=== PATIENT | male | born 1980 | race African-American/Black ===

== ENCOUNTER 2020-07-19 09:33 | Emergency (ER) | payer BC, OTHER ==
--- NOTE | 2020-07-19 10:21 | RADIOLOGY REPORT (SQ) ---
EXAM DESCRIPTION: CHEST SINGLE VIEW IMAGES COMPLETED DATE/TIME: 07/19/2020 10:14 am REASON FOR STUDY: bed 10 chest pain COMPARISON: None. EXAM PARAMETERS: NUMBER OF VIEWS: One view. TECHNIQUE: Single frontal radiographic view of the chest acquired. RADIATION DOSE: NA LIMITATIONS: None. FINDINGS: LUNGS AND PLEURA: No opacities, masses or pneumothorax. No pleural effusion. MEDIASTINUM AND HILAR STRUCTURES: No masses. Contour normal. HEART AND VASCULAR STRUCTURES: Heart normal in size. Normal vasculature. BONES: No acute findings. HARDWARE: None in the chest. OTHER: No other significant finding. IMPRESSION: NO ACUTE RADIOGRAPHIC FINDING IN THE CHEST. TECHNICAL DOCUMENTATION: JOB ID: [id number] 2010 [employer]- All Rights Reserved Reading location - IP/workstation name: [email or web address]
[2020-07-19] MEDS ORDERED: KETOROLAC TROMETHAMINE INJ/PF 30 MG/1 ML SDV IV ONE (10:32)
--- NOTE | 2020-07-19 10:32 | ER Document Report ---
ED General - General Chief Complaint: Chest Pain Stated Complaint: CHEST PAIN Time Seen by Provider: 07/19/20 09:46 - HPI Notes: Chief complaint: Chest pain History of present illness: 40-year-old male presenting for evaluation of chest pain. Patient says he awakened this morning with sharp intermittent discomfort in area of his left nipple which radiates to left shoulder and left arm. This comes and goes and is not clearly related to movement or exertion. Episodes last about 10 seconds at a time. He denies any unaccustomed activity or injury. Patient notes that he has made a drive of several 100 miles within the last 24 hours. He denies any known history of thromboembolic disease. He denies any known history of coronary disease. He denies hemoptysis or shortness of breath. He denies any pain or swelling in his lower legs. He denies any nausea or vomiting. Positive CAD risk factors: Family history is positive for CAD. He has a history of hypertension under treatment for the last 10 years. Negative CAD risk factors: Non-smoker No history of hyperlipidemia No history of diabetes mellitus No history of obesity HEART Score: HISTORY 1 ECG 0 AGE 1 RISK FACTORS 1 TROPONIN 0 TOTAL: 2 If HEART score is < 3 AND both tronponin measurments are normal, the 30 day risk of a major adverse cardiac event (all-cause mortality, myocardia infarction or need for coronary revscularization) is < 1% (Sensitivity 100%, NPV 100%). Current medications: Propranolol 80 mg twice daily Butalbital/codeine/acetaminophen as needed migraine headaches - Related Data Allergies/Adverse Reactions: banana Allergy (Verified 07/19/20 10:05) Home Medications: bp medication Past Medical History - General Information source: Patient - Social History Smoking Status: Never Smoker Chew tobacco use (# tins/day): No Frequency of alcohol use: None Drug Abuse: None Occupation: [employer] Family History: CAD Patient has homicidal ideation: No - Past Medical History Cardiac Medical History: Reports: Hx Hypertension Denies: Hx Coronary Artery Disease, Hx DVT, Hx Pulmonary Embolism Neurological Medical History: Reports: Hx Migraine Endocrine Medical History: Denies: Hx Diabetes Mellitus Type 1, Hx Diabetes Mellitus Type 2 Musculoskeletal Medical History: Reports Hx Arthritis - Right knee Review of Systems - Review of Systems Notes: Constitutional: Negative for fever. HENT: Negative for sore throat. Eyes: Negative for visual changes. Cardiovascular: As per HPI. Respiratory: Negative for shortness of breath. Gastrointestinal: Negative for abdominal pain, vomiting or diarrhea. Genitourinary: Negative for dysuria. Musculoskeletal: Chronic arthritic pain right knee and lower back. Skin: Negative for rash. Neurological: Negative for headaches, weakness or numbness. 10 point ROS negative except as marked above and in HPI. Physical Exam - Vital signs Vitals: Resp 19 07/19/20 09:45 BP 142/105 Interpretation: Hypertensive - Notes Notes: GENERAL: Middle-age male appearing in no acute distress. SKIN: Good turgor no rashes. HEAD: Normocephalic atraumatic. EYES: PERRLA. EOMI. Conjunctivae and sclerae clear. EARS: CANALS AND TMS CLEAR. NOSE: CLEAR. MOUTH: Moist mucosa. Good dentition. No stridor or edema. No drooling. NECK: Supple. No masses or thyromegaly. No adenopathy. Carotids 2+ without bruits. No JVD. BACK: Symmetrical without tenderness. CHEST: Respirations unlabored. Breath sounds clear and symmetrical. HEART: Regular rhythm. No murmur gallop or rub. ABDOMEN: Soft nontender without masses, organomegaly or rebound. Bowel sounds normally active. No bruits. GENITALIA: Deferred. EXTREMITIES: No edema. No calf tenderness. Cap refill less than 1.5 seconds. Dorsalis pedis and posterior tibial pulses 3+ and symmetrical. NEUROLOGICAL: GCS 15. Alert and oriented x3. Fluent speech. Cranial nerves II through XII intact. Sensorimotor and cerebellar normal. Normal tone. PSYCHIATRIC: Slightly anxious affect. Course - Re-evaluation Re-evalutation: 07/19/20 13:31 Patient presented with atypical chest pain. Heart score is 2. He has had 2 - EKGs and 2 troponins normal 3 hours apart. His D-dimer was normal. His chest x-ray is normal. I think his chest pain is likely musculoskeletal origin but he does have several cardiac risk factors. Case was discussed with on-call manager payroll Dr. Cabrera who will see the patient back for follow-up in anticipation of an outpatient treadmill test. I have given patient a 3-day work note. - Vital Signs Vital signs: Temp Pulse Resp BP Pulse Ox 13 142/105 H 98 07/19/20 10:01 07/19/20 10:01 07/19/20 10:01 - Laboratory Results Result Diagrams: 07/19/20 09:58 07/19/20 09:58 Laboratory Results Interpreted: 07/19/20 07/19/20 09:58 09:58 RBC 5.57 H MCV 78 L MCH 24.3 L MCHC 31.2 L RDW 14.3 H Sodium 136.9 L Glucose 115 H ALT 59 H Creatine Kinase 376 H Critical Laboratory Results Reviewed: No Critical Results - Radiology Results Radiology Results Interpreted: 07/19/20 10:50 Chest X-Ray 07/19/20 09:45 IMPRESSION: NO ACUTE RADIOGRAPHIC FINDING IN THE CHEST. Critical Radiology Results Reviewed: No Critical Results - EKG Interpretation by Me Additional EKG results interpreted by me: 07/19/20 10:50 Twelve-lead EKG reviewed by me contemporaneously: 0942 hrs. Indication for study: Chest pain Rhythm: Normal sinus Rate: 75 Intervals: Normal intervals QRS axis: +[address]/T wave changes: None Comparison with prior tracing: None Interpretation: Normal sinus rhythm Discharge - Discharge Clinical Impression: Chest pain Qualifiers: Chest pain type: unspecified Qualified Code(s): R07.9 - Chest pain, unspecified Condition: Stable Disposition: HOME, SELF-CARE Instructions: Chest Pain of Unclear Cause ([facility]) Additional Instructions: Take prescribed medication as directed. You have been provided a work note for the next 3 days. You will be contacted by on-call manager payroll to schedule office visit and outpatient treadmill test. Return here as needed for new or worsening symptoms: Pain that is worsening or unimproved Uncontrolled vomiting High fever or shaking chills Overall worsening Prescriptions: Ketorolac Tromethamine [Toradol 10 mg Tablet] 10 mg PO Q6HP PRN 10 Days #20 tablet PRN Reason: Forms: Parent Work Note Referrals: ASHISH CABRERA MD [ACTIVE PROVISIONAL STAFF] - Follow up as needed
[2020-07-19 10:35] LABS: ABSOLUTE EOSINOPHILS # (AUTO) 0.3 10^3/uL (0.0-0.6); ABSOLUTE LYMPHOCYTES (AUTO) 1.4 10^3/uL (0.5-4.7); ABSOLUTE MONOCYTES (AUTO) 0.3 10^3/uL (0.1-1.4); ABSOLUTE NEUT (AUTO) 2.6 10^3/uL (1.7-8.2); BASOPHILS % (AUTO) 0.7 % (0-2); HEMATOCRIT 43.4 % (37.9-51.0); HEMOGLOBIN 13.5 g/dL (13.5-17.0); LYMPHOCYTES % (AUTO) 30.1 % (13-45); MEAN CORPUSCULAR HEMOGLOBIN 24.3 pg (27.0-33.4); MEAN CORPUSCULAR HGB CONC 31.2 g/dL (32.0-36.0); MEAN CORPUSCULAR VOLUME 78 fl (80-97); MONOCYTES % (AUTO) 6.6 % (3-13); PLATELET COUNT 173 10^3/uL (150-450); RED BLOOD COUNT 5.57 10^6/uL (4.35-5.55); RED CELL DISTRIBUTION WIDTH 14.3 % (11.5-14.0); SEGMENTED NEUTROPHILS % (AUTO) 56.6 % (42-78); TOTAL CELLS COUNTED % (AUTO) 100 %; WHITE BLOOD COUNT 4.6 10^3/uL (4.0-10.5)
[2020-07-19 10:52] LABS: ALBUMIN 4.3 g/dL (3.5-5.0); ALKALINE PHOSPHATASE 66 U/L (38-126); ANION GAP 6 (5-19); ASPARTATE AMINO TRANSFERASE 40 U/L (17-59); BILIRUBIN,DIRECT 0.2 mg/dL (0.0-0.4); BILIRUBIN,TOTAL 0.5 mg/dL (0.2-1.3); BLOOD UREA NITROGEN 19 mg/dL (7-20); CALCIUM 9.7 mg/dL (8.4-10.2); CARBON DIOXIDE 29 mmol/L (22-30); CHLORIDE 102 mmol/L (98-107); CREATINE KINASE 376 U/L (55-170); GLUCOSE 115 mg/dL (75-110); POTASSIUM 4.2 mmol/L (3.6-5.0); TOTAL PROTEIN 7.4 g/dL (6.3-8.2)
[2020-07-19 11:06] LABS: CREATINE KINASE MB 2.53 ng/mL (<4.55)
[2020-07-19 11:09] LABS: TROPONIN I < 0.012 ng/mL
[2020-07-19 14:28] VITALS: BP 122/84
--- NOTE | 2020-07-19 18:48 | EKG REPORT ---
SEVERITY:- NORMAL ECG - SINUS RHYTHM : Confirmed by: Rich De Los Santos MD 19-Jul-2020 18:46:38
== END 2020-07-19 14:28 | disposition home or self-care (01) ==
LOC: ER 09:33
DX: R07.89 Other chest pain (principal); M17.11 Unilateral primary osteoarthritis, right knee; M47.9 Spondylosis, unspecified; I10 Essential (primary) hypertension; G43.909 Migraine, unspecified, not intractable, without status migrainosus; Z79.899 Other long term (current) drug therapy; Z91.018 Allergy to other foods; Z82.49 Family history of ischemic heart disease and other diseases of the circulatory system
CPT/HCPCS: 93005; 99285; 96374; 36415; 82553; 82550; 85025; 80053; 84484; 85379; 71045; 93010; J1885